=== PATIENT | male | born 1980 | race Caucasian/White ===

== ENCOUNTER 2017-03-29 13:26 | Emergency (ER) | payer OTHER ==
[~2017-03-29] VITALS: Wt 83.9 kg
[~2017-03-29 13:26] MED LIST: VICODIN 5/500 505 MG PO
[2017-03-29 14:05] LABS: BASO % 0.3 % (0.0-1.0); EOS # 0.1 10*3/uL (0.0-0.4); EOS % 1.4 % (1.0-4.0); HEMATOCRIT 45.2 % (42.0-52.0); HEMOGLOBIN 15.5 g/dl (14.0-18.0); LYMPH # 1.9 10*3/uL (1.3-4.4); LYMPH % 20.2 % (27.0-41.0); MEAN CELL VOLUME 92.8 fl (80.0-94.0); MEAN CORPUSCULAR HGB 31.8 pg (27.0-31.0); MEAN CORPUSCULAR HGB CONC 34.3 g/dl (33.0-37.0); MEAN PLATELET VOLUME 8.9 fl (9.6-12.3); MONO # 0.9 10*3/uL (0.1-1.0); MONO % 9.4 % (3.0-9.0); NEUT # 6.4 10*3/uL (2.3-7.9); NEUT % 68.4 % (47.0-73.0); PLATELET COUNT AUTOMATED 288 10*3/uL (130-400); RED BLOOD COUNT 4.87 10*6/uL (4.50-5.90); RED CELL DISTRI WIDTH 14.1 % (0-14.5); WHITE BLOOD COUNT 9.3 10*3/uL (4.8-10.8)
[2017-03-29 14:11] LABS: PROTHROMBIN TIME 10.7 SECONDS (9.0-12.4)
[2017-03-29 14:19] LABS: ALBUMIN 3.5 gm/dl (3.1-4.5); ALKALINE PHOSPHATASE 77 U/L (45-117); BILIRUBIN, TOTAL 1.2 mg/dl (0.2-1.0); BUN 15 mg/dl (7-24); CARBON DIOXIDE 25 mmol/L (21-32); CHLORIDE 105 mmol/L (98-107); CPK 108 U/L (39-308); EST GLOM FILT AFRICAN AMERICAN > 60 ml/min; GLUCOSE 105 mg/dL (65-99); MAGNESIUM 2.3 mg/dL (1.5-2.1); POTASSIUM 3.8 mmol/L (3.5-5.1); SGOT/AST 24 IU/L (3-35); SGPT/ALT 34 U/L (12-78); SODIUM 139 mmol/L (136-145); TOTAL PROTEIN 7.5 gm/dL (6.4-8.2)
[2017-03-29 14:23] LABS: C-REACTIVE PROTEIN < 0.29 MG/DL (0-0.3)
[2017-03-29 14:24] LABS: TROPONIN I < 0.015 ng/ml (<0.045)
[2017-03-29] MEDS ORDERED: EC NAPROSYN500 MG PO (17:54)
== END 2017-03-29 18:19 | disposition home or self-care (01) ==
LOC: ED 13:26
PROVIDERS: Emergency Medicine
DX: R07.89 Other chest pain (principal)

== ENCOUNTER 2017-09-10 21:16 | Emergency (ER) | payer OTHER ==
[~2017-09-10] VITALS: Ht 182.8 cm; Wt 81.6 kg
[~2017-09-10 21:16] MED LIST changes: +EC NAPROSYN500 MG PO
[2017-09-10] MEDS ORDERED: CLINDAMYCIN HC300 MG PO (22:57)
== END 2017-09-10 23:22 | disposition home or self-care (01) ==
LOC: ED 21:16
DX: K04.7 Periapical abscess without sinus (principal); K02.9 Dental caries, unspecified; F10.10 Alcohol abuse, uncomplicated

== ENCOUNTER → 2019-10-24 | Outpatient (CLI) | payer OTHER ==
[~2019-10-24] MED LIST changes: +CLINDAMYCIN HC300 MG PO
== END | disposition home or self-care (01) ==
LOC: MRI 08:44
DX: M65.851 Other synovitis and tenosynovitis, right thigh (principal); M24.271 Disorder of ligament, right ankle; M25.571 Pain in right ankle and joints of right foot

== ENCOUNTER → 2021-07-22 | Outpatient (CLI) | payer OTHER | END | disposition home or self-care (01) | LOC: RAD 16:09 | PROVIDERS: ATTEND Nurse Practitioner Family | DX: M27.2 Inflammatory conditions of jaws (principal); R68.84 Jaw pain ==